=== PATIENT | male | born 1990 | race Caucasian/White ===

== ENCOUNTER 2022-02-23 15:58 | Emergency (ER) | payer OTHER ==
[2022-02-23 16:23] VITALS: BP 122/77; PULSE 96; RESP 18; TEMP 98.1; BMI 24.7
[2022-02-23 18:10] LABS: BASO % 0.7 % (0-2.0); EOS % 1.2 % (0-4.5); HEMATOCRIT 44.8 % (35.4-49); HEMOGLOBIN 15.1 GM/dL (11.7-16.9); LYMPH % 39.3 % (8-40); MCH 30.5 pg (25.7-33.7); MCHC 33.7 g/dl (32.0-35.9); MEAN CELL VOLUME 90.5 fl (80-96); MEAN PLT VOLUME 9.5 fl (7.5-11.1); MONO % 9.8 % (3.8-10.2); PLATELET COUNT 207 10^3/uL (134-434); RBC 4.96 M/mm3 (4.00-5.60); RDW 13.4 % (11.9-15.9)
[2022-02-23 18:18] LABS: CHLORIDE 107 mmol/L (98-107); SODIUM 142 mmol/L (136-145)
[2022-02-23 18:21] LABS: ALBUMIN 3.9 g/dl (3.4-5.0); ANION GAP 6 MMOL/L (8-16); BLOOD UREA NITROGEN 12.2 mg/dL (7-18); CALCIUM 8.9 mg/dL (8.5-10.1); CO2 29 mmol/L (21-32); GLUCOSE,RANDOM 96 mg/dL (74-106)
[2022-02-23 18:24] LABS: CREATININE 1.1 mg/dL (0.55-1.3); SGOT/AST 12 U/L (15-37); SGPT/ALT 29 U/L (13-61)
[2022-02-23 18:26] LABS: BILIRUBIN,TOTAL 0.5 mg/dL (0.2-1)
[2022-02-23 18:27] LABS: ALK PHOS 134 U/L (45-117)
[2022-02-23 19:48] LABS: URINE APPEARANCE CLEAR; URINE BILIRUBIN NEGATIVE (NEGATIVE); URINE COLOR YELLOW; URINE GLUCOSE (UA) 2+ (NEGATIVE); URINE KETONE TRACE (NEGATIVE); URINE LEUK ESTERASE NEGATIVE (NEGATIVE); URINE NITRITE NEGATIVE (NEGATIVE); URINE PROTEIN NEGATIVE (NEGATIVE)
[2022-02-23 20:16] LABS: METHADONE, UR NEGATIVE (NEGATIVE); URINE BENZODIAZEPINES NEGATIVE (NEGATIVE)
[2022-02-23 20:18] LABS: COCAINE, UR NEGATIVE (NEGATIVE); OPIATES, URI NEGATIVE (NEGATIVE); PHENCYCLIDINE,URINE NEGATIVE (NEGATIVE)
[2022-02-23 20:19] LABS: URINE BARBITURATES NEGATIVE (NEGATIVE)
[2022-02-23 20:31] LABS: URINE AMPHETAMINES POSITIVE (NEGATIVE)
== END 2022-02-23 21:00 | disposition home or self-care (01) ==
LOC: JER 15:58
DX: R45.851 Suicidal ideations (principal)
CPT/HCPCS: 36415; 80053; 80307; 81003; 84439; 84443; 85025; 87086; 99283-25; C9803-CS; U0003; U0005